=== PATIENT | female | born 1950 | race Caucasian/White ===

== ENCOUNTER → 2018-03-17 | Outpatient (CLI) | payer MEDICARE ==
[~2018-03-17] MED LIST: ACYC800T99 PO; ASPI-757 PO; ESTR0.5T16 PO; METF-411 PO; NAPR220C11 PO; SIMV-54 PO
--- NOTE | 2018-03-18 08:35 | RADIOLOGY IMAGING REPORT ---
FAC[facility] PATIENT NAME: AMANDA AREVALO : [id number] MR: [id number] V: [id number] EXAM DATE: [id number] ORDERING PHYSICIAN: MONTY CARLOS TECHNOLOGIST: Georgie Wong PROCEDURE:BILATERAL DIGITAL SCREENING MAMMOGRAM WITH CAD ASSISTED INTERPRETATION & 3D TOMOSYNTHESIS COMPARISON:Prior mammograms 01/08/17, 09/06/15, 06/29/13, 12/16/12. INDICATIONS:screening FINDINGS: A small amount of fibroglandular tissue is seen throughout the breasts. The parenchymal pattern has remained stable allowing for difference in mammographic technique & patient positioning. There is no evidence of malignant appearing mass, malignant appearing calcifications or other secondary sign of malignancy in either breast. DIAGNOSTIC CATEGORY 1--NEGATIVE. RECOMMENDATIONS: ROUTINE MAMMOGRAM AND CLINICAL EVALUATION. IMPRESSION: BIRADS 1: Negative. No significant abnormality is seen. Dictated by: Marisela Aguayo M.D. on 03/17/2018 at 10:03 Transcribed by: PINEDA on 03/17/2018 at 10:14 Approved by: Marisela Aguayo M.D. on 03/18/2018 at 8:34 [facility]
== END ==
LOC: MAMO 01:15
PROVIDERS: ATTEND Nurse Practitioner Family
DX: Z12.31 Encounter for screening mammogram for malignant neoplasm of breast (principal)
CPT/HCPCS: 77063; 77067

== ENCOUNTER → 2018-06-24 | Outpatient (CLI) | payer MEDICARE ==
[~2018-06-24] MED LIST changes: -METF-411 PO; +METF-450 PO
--- NOTE | 2018-06-24 08:44 | EKG ---
FACILITY: [facility] PATIENT NAME: AMANDA AREVALO : [id number] MR: [id number] V: [id number] EXAM DATE: ORDERING PHYSICIAN: MONTY CARLOS TECHNOLOGIST: Test Reason : z82.49 Blood Pressure : / mmHG Vent. Rate : 059 BPM Atrial Rate : 059 BPM P-R Int : 178 ms QRS Dur : 084 ms QT Int : 442 ms P-R-T Axes : 042 089 064 degrees QTc Int : 437 ms Sinus bradycardia No acute appearing findings No previous ECGs available Confirmed by GREG MALDONADO ([id number] on 06/24/2018 2:00:30 PM Referred By: Confirmed By:GREG MALDONADO
== END ==
LOC: RESP 08:26
PROVIDERS: ATTEND Nurse Practitioner Family
DX: Z00.00 Encounter for general adult medical examination without abnormal findings (principal); Z82.49 Family history of ischemic heart disease and other diseases of the circulatory system; R00.1 Bradycardia, unspecified
CPT/HCPCS: 93005